=== PATIENT | male | born 1940 | race Hispanic/Latino ===

== ENCOUNTER 2017-09-15 17:46 | Inpatient (IN) | payer MEDICARE, BC ==
[2017-09-15] MEDS ORDERED: Sodium Chloride 0.9% 1,000 ML IV ONE (18:33)
[2017-09-15 19:11] LABS: VENOUS BLOOD GAS BASE EXCESS 0.9 mmol/L (0.0-2.0); VENOUS BLOOD GAS PO2 53 mm/Hg (30-55); VENOUS BLOOD PH 7.47 (7.32-7.43)
[2017-09-15 19:15] LABS: ALB/GLOB RATIO 1.5 (1.1-1.8); ALBUMIN 4.4 g/dL (3.0-4.8); ALT/SGPT 36 U/L (7-56); AST/SGOT 34 U/L (17-59); BLOOD UREA NITROGEN 26 mg/dL (7-21); CALCIUM 9.1 mg/dL (8.4-10.5); GFR AFRICAN-AMERICAN > 60; GFR NON-AFRICAN AMERICAN > 60
--- NOTE | 2017-09-15 19:15 | ED PDOC ---
Arrival/HPI - General Chief Complaint: Weakness/Neurological Deficit Time Seen by Provider: 09/15/17 18:01 Historian: Patient - History of Present Illness Narrative History of Present Illness (Text): 09/15/17 19:07 77 yo M with PMH of ascending aortic aneurysm, essential thrombocytosis on pegasys (peginteferon princess-2a), mitral insufficiency, hypertension, hyperlipidemia, melanoma s/p excision 2009, prostate CA s/p brachytherapy and radiation therapy, and nonocclusive CAD, who presents complaining of intermittent shortness of breath since 11:00 this morning. He started feeling short of breath this morning, worsened by walking, which he sometimes has, but was worse than usual for him. He wasn't feeling well, so he checked his temperature which was 101.5. He denies any chest pain, palpitations, cough, dizziness, abdominal pain, nausea, vomiting, diarrhea, chills, confusion, loss of consciousness, focal numbness or weakness, parasthesias. He also reports that he has constipation for several months. He also has had rectal bleeding since february of last year. He went to see his GI doctor (Dr. Saez) who did a colonoscopy 2 weeks ago, which was reportedly normal, and told him the bleeding was a consequence of the radiation he had for his prostate cancer. He was started on rectal mesalamine suppositories, which he has been taking since then, though skipped a few days. He has been bleeding more since starting the mesalamine, including several instances in which the blood filled the bowl. Valerio reports that he has recently been in contact with his grandson, who had an unknown viral illness last week. Time/Duration: 4-6 hours, > month, < month Symptom Course: Worsening Activities at Onset: Light Context: Walking Past Medical History - Provider Review Nursing Documentation Reviewed: Yes - Travel History Have you recently traveled outside [place] w/in the past 3 mons?: No - Patient History Narrative Patient History: ascending aortic aneurysm, essential thrombocytosis on pegasys (peginteferon princess-2a), mitral insufficiency, hypertension, hyperlipidemia, melanoma s/p excision 2009, prostate CA s/p brachytherapy and radiation therapy, and nonocclusive CAD - Infectious Disease Hx of Infectious Diseases: None - Tetanus Immunization Tetanus Immunization: Unknown - Cardiac Hx Hypertension: Yes Other/Comment: Leaky Mitro valve. Dialated aorta - HEENT Hx HEENT Disorder: No Other/Comment: Right eye problem - Psychiatric Hx Substance Use: No Family/Social History Family/Social History: CAD/[place], Neoplasm/Cancer Smoking Status: Never Smoked Hx Alcohol Use: No Hx Substance Use: No Hx Substance Use Treatment: No Allergies/Home Meds Allergies/Adverse Reactions: Allergies formaldehyde Allergy (Verified 09/15/17 18:02) RASH nickel Allergy (Verified 09/15/17 18:02) RASH Home Medications: Home Meds Medication Instructions Recorded Confirmed Aspirin [Kym Aspirin Children's] 325 mg PO DAILY 04/10/13 04/10/13 Hydrochlorothiazide/Valsarta 1 tab PO DAILY 04/10/13 04/10/13 [Diovan Hct 25 mg-160 mg] Simvastatin 20 mg PO DAILY 04/10/13 04/10/13 Review of Systems - Physician Review All systems were reviewed & negative as marked: Yes Physical Exam Vital Signs Reviewed: Yes Vital Signs Temp Pulse Resp BP Pulse Ox 09/15/17 20:48 102/65 09/15/17 19:15 108 H 18 109/67 95 09/15/17 18:10 101.5 F H 99 H 16 128/80 99 Temperature: Febrile Blood Pressure: Normal Pulse: Tachycardic Respiratory Rate: Normal Appearance: Positive for: Well-Appearing, Non-Toxic, Comfortable Pain Distress: None Mental Status: Positive for: Alert and Oriented X 3 - Systems Exam Head: Present: Atraumatic, Normocephalic Pupils: Present: PERRL Extroacular Muscles: Present: EOMI Conjunctiva: Present: Normal Mouth: Present: Moist Mucous Membranes Pharnyx: Present: Normal. No: ERYTHEMA, EXUDATE Neck: Present: Normal Range of Motion. No: Meningeal Signs Respiratory/Chest: Present: Clear to Auscultation, Good Air Exchange. No: Respiratory Distress, Accessory Muscle Use Cardiovascular: Present: Regular Rate and Rhythm, Murmurs (4/6 holosytolic murmur heard 6th intercostal space left midclavicular line), Normal S1, S2, Tachycardic Abdomen: No: Tenderness, Distention, Normal Bowel Sounds (hypoactive), Peritoneal Signs, Rebound, Guarding Upper Extremity: Present: Normal Inspection, NORMAL PULSES. No: Cyanosis, Edema Lower Extremity: Present: Normal Inspection, NORMAL PULSES. No: Edema, CALF TENDERNESS Neurological: Present: GCS=15, CN II-XII Intact, Speech Normal Skin: Present: Warm, Dry, Normal Color. No: Rashes (localized erythema over bilateral abdominal pegasys injection sites) Lymphatic: No: Cervical Adenopathy Psychiatric: Present: Alert, Oriented x 3, Normal Insight, Normal Concentration Medical Decision Making ED Course and Treatment: 09/15/17 19:25 Impression: 77 yo M with complicated PMH, multiple comorbidities, complaining of shortness of breath, fever, and rectal bleeding Differential Diagnosis included but are not limited to: infection, ACS, anemia , GIB Plan: -- Labs: CBC, CMP, Urinalysis, VBG with lactate, Urinalysis, urine culture, blood culture, troponin, BNP, procalcitonin, rapid flu, Mg, Phos, PT, PTT -- EKG -- Chest X-ray -- 1L NS IVF bolus -- Acetaminophen for fever -- Reassess and disposition Progress Notes: 09/15/17 21:25 -- Labs significant for leukocytosis, but no lactic acidosis. UA and flu negative. Mild anemia and thrombocytosis, similar to baseline. Chemistry shows indeterminate, borderline troponin, elevated BNP. -- CXR shows mild congestion, and likely LLL consolidation concerning for PNA -- EKG shows sinus rhythm with 1st degree AV block; no ST elevations -- Patient likely has CAP causing fever, tachycardia, and CHF with resultant elevated troponin vs NSTEMI -- Ordered Lasix, -- Discussed with Dr. Hernandez who accepts patient to his service, admitted as inpatient to telemetry for pneumonia and CHF; requests Dr. Kramer for cardiology -- Call placed to Dr. Kramer 09/15/17 22:22 -- Dr. Kramer called, discussed case, recommended therapeutic anticoagulation with Lovenox 1mg/kg and ICU consult considering low BP and CHF -- Discussed with with machine tool designer Dr. Verde and medical records analyst for ICU consult for CHF and relative hypotension - Lab Interpretations Lab Results: 09/15/17 18:40 09/15/17 18:40 Lab Results 09/15/17 19:21: Influenza Typ A,B (EIA) Negative for flu a/b 09/15/17 19:21: Urine Color Yellow, Urine Appearance Clear, Urine pH 6.0, Ur Specific [place] 1.020, Urine Protein Negative, Urine Glucose (UA) Negative, Urine Ketones Negative, Urine Blood Negative, Urine Nitrate Negative, Urine Bilirubin Negative, Urine Urobilinogen 0.2, Ur Leukocyte Esterase Negative 09/15/17 18:40: Sodium 139, Chloride 102, Potassium 4.0, Carbon Dioxide 22, Anion Gap 19, BUN 26 H, Creatinine 0.8, Est GFR ( Amer) > 60, Est GFR ( Non-Af Amer) > 60, Random Glucose 97, Calcium 9.1, Phosphorus 2.5, Magnesium 1.9 , Total Bilirubin 0.4, AST 34, ALT 36, Alkaline Phosphatase 66, Troponin I 0.11 , NT-Pro-B Natriuret Pep 3480 H, Total Protein 7.3, Albumin 4.4, Globulin 2.9, Albumin/Globulin Ratio 1.5 09/15/17 18:40: pO2 53, VBG pH 7.47 H, VBG pCO2 33.0 L, VBG HCO3 24.0, VBG Total CO2 25.0, VBG O2 Sat (Calc) 93.2 H, VBG Base Excess 0.9, VBG Potassium 3.8 , Sodium 134.0, Chloride 103.0, Glucose 95, Lactate 1.3, FiO2 21.0, Venous Blood Potassium 3.8 09/15/17 18:40: PT 12.6 H, INR 1.10 H, APTT 36.7 H 09/15/17 18:40: WBC 11.8 H, RBC 4.33, Hgb 12.4 L, Hct 36.3 L, MCV 83.8, MCH 28.6 , MCHC 34.2, RDW 15.0 H, Plt Count 480 H, MPV 10.2, Gran % 86.7 H, Lymph % (Auto ) 7.7 L, [place] % (Auto) 4.8, Eos % (Auto) 0.7 L, Baso % (Auto) 0.1, Gran # 10.22 H, Lymph # (Auto) 0.9 L, [place] # (Auto) 0.6, Eos # (Auto) 0.1, Baso # (Auto) 0.01 09/15/17 18:02: POC Glucose (mg/dL) 100 - RAD Interpretation Radiology Orders: 09/15/17 18:34 CHEST TWO VIEWS (PA/LAT) [RAD] Stat - Medication Orders Current Medication Orders: Acetaminophen (Tylenol 325mg Tab) 975 mg PO ONCE PRN PRN Reason: Fever >100.4 F Last Admin: 09/15/17 18:55 Dose: 975 mg MAR Pain/Vitals Document 09/15/17 18:55 EWO (Rec: 09/15/17 18:55 EWO [id number]) Pain Reassessment Is This A Pain ReAssessment? No Ceftriaxone Sodium (Rocephin 1 Gram Ivpb) 1 gm in 100 mls @ 100 mls/hr IVPB STAT STA PRN Reason: Protocol Stop: 09/15/17 21:31 Last Admin: 09/15/17 20:48 Dose: 100 mls/hr eMAR Start Stop Document 09/15/17 20:48 CNR (Rec: 09/15/17 20:49 CNR [id number]) Intravenous Solution Start Date 09/15/17 Start Time 20:48 End Date 09/15/17 End time 21:48 Total Infusion Time 60 Azithromycin (Zithromax 500mg In Ns) 500 mg in 250 mls @ 167 mls/hr IVPB STAT STA PRN Reason: Protocol Stop: 09/15/17 22:07 Discontinued Medications Aspirin (Aspirin Chewable) 324 mg PO STAT STA Stop: 09/15/17 20:33 Last Admin: 09/15/17 20:48 Dose: 324 mg Furosemide (Lasix) 40 mg IVP STAT STA Stop: 09/15/17 20:33 Last Admin: 09/15/17 20:48 Dose: 40 mg MAR Blood Pressure Document 09/15/17 20:48 CNR (Rec: 09/15/17 20:48 CNR [id number]) Blood Pressure Blood Pressure (100/60-150/90) 102/65 IVP Administration Document 09/15/17 20:48 CNR (Rec: 09/15/17 20:48 CNR [id number]) Charges for Administration # of IVP Administrations 1 Sodium Chloride (Sodium Chloride 0.9%) 1,000 mls @ 1,000 mls/hr IV .Q1H ONE Stop: 09/15/17 19:32 Last Admin: 09/15/17 18:54 Dose: 1,000 mls/hr eMAR Start Stop Document 09/15/17 18:54 NORMAN (Rec: 09/15/17 18:54 SAMMYO [id number]) Intravenous Solution Start Date 09/15/17 Start Time 18:54 End Date 09/15/17 End time 19:54 Total Infusion Time 60 Disposition/Present on Arrival - Present on Arrival Any Indicators Present on Arrival: No History of DVT/PE: No History of Uncontrolled Diabetes: No Urinary Catheter: No History of Decub. Ulcer: No History Surgical Site Infection Following: None - Disposition Have Diagnosis and Disposition been Completed?: Yes Diagnosis: CHF (congestive heart failure), Pneumonia, Elevated troponin Disposition: HOSPITALIZED Disposition Time: 22:29 Patient Plan: Admission, Telemetry Condition: GUARDED
[2017-09-15 19:19] LABS: BASO # 0.01 K/mm3 (0.0-2.0); BASO % 0.1 % (0.0-3.0); EOS # 0.1 (0.0-0.7); EOS % 0.7 % (1.5-5.0); GRAN # 10.22 (1.4-6.5); GRAN % 86.7 % (50.0-68.0); HEMOGLOBIN 12.4 g/dL (14.0-18.0); LYMPH # 0.9 (1.2-3.4); LYMPH % 7.7 % (22.0-35.0); MEAN CELL VOLUME 83.8 fl (80.0-105.0); MEAN CORPUSCULAR HEMOGLOBIN 28.6 pg (25.0-35.0); MEAN CORPUSCULAR HGB CONC 34.2 g/dl (31.0-37.0); MEAN PLATELET VOLUME 10.2 fl (7.0-11.0); MONO # 0.6 (0.1-0.6); MONO % 4.8 % (1.0-6.0); RBC 4.33 10^6/uL (3.5-6.1); WHITE BLOOD COUNT 11.8 10^3/ul (4.5-11.0)
[2017-09-15 19:29] LABS: URINE BILIRUBIN NEGATIVE (NEGATIVE); URINE BLOOD NEGATIVE (NEGATIVE); URINE GLUCOSE (UA) NEGATIVE (NEGATIVE); URINE LEUKOCYTE ESTERASE NEGATIVE Leu/uL (NEGATIVE); URINE PROTEIN NEGATIVE mg/dL (<30 mg/dL); URINE UROBILINOGEN 0.2 E.U./dL (<1 E.U./dL)
[2017-09-15 19:29] LABS: B-TYPE NATRIURETIC PEPTIDE 3480 pg/mL (0-450); INR 1.1 (0.93-1.08); PARTIAL THROMBOPLASTIN TIME 36.7 Seconds (25.1-36.5); PROTHROMBIN TIME 12.6 SECONDS (9.4-12.5); TROPONIN I 0.11 ng/mL
[2017-09-15 19:30] LABS: URINE APPEARANCE CLEAR (CLEAR); URINE COLOR YELLOW (YELLOW)
[2017-09-15] MEDS ORDERED: cefTRIAXone 1 gm 1 GM/100 ML BAG IVPB STA (20:32)
[2017-09-15] MEDS ORDERED: Azithromycin 500MG/NS 250ml 500 MG/250 ML BAG IVPB STA (20:38)
--- NOTE | 2017-09-15 22:29 | CP.PCM.CON ---
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 He started feeling short of breath this morning, worsened by walking. Denies baseline SOB. He wasn' t feeling well, so he checked his temperature which was 101.5. At baseline, pt sleeps on 1 pillow. Do yard work occasionally. There are 3 flights of stairs at home, which he climbed with no SOB. He reports that he had rectal bleeding since february of last year. He went to see his GI doctor (Dr. Saez) who did a colonoscopy 2 weeks ago, which was reportedly normal, and told him the bleeding was a consequence of the radiation he had for his prostate cancer. He was started on rectal mesalamine suppositories, which he has been taking since then, though skipped a few days. He has been bleeding more since starting the mesalamine, including several instances in which the blood filled the bowl. In the ED, after 1L NS bolus, he received 40 IV lasix, and BP drops from 120s to 90. At baseline, pt BP was in 110s/70s at home. ROS - (+) blood in stool (+) L shoulder pain, chronic, (+) L arm pain, chronic. (+) consttpation Denies COOL, dizziness, chest pain, palpitations, cough, abdominal pain, nausea, vomiting, diarrhea, chills, confusion, focal numbness or weakness, parasthesias. 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 Occasionally wine, Denies drug All Formaldehye, annie Med See MAR PMD Dr Hernandez One/Heme Dr Julio, [facility] Dr [address], [place], [place] GI Dr Saez Eye Dr [address], [place], [place] Past Patient History - Infectious Disease Hx of Infectious Diseases: None - Tetanus Immunizations Tetanus Immunization: Unknown - Past Social History Smoking Status: Never Smoked - CARDIAC Hx Hypertension: Yes Other/Comment: Leaky Mitro valve. Dialated aorta - HEENT Hx HEENT Problems: No Other/Comment: Right eye problem - PSYCHIATRIC Hx Substance Use: No Meds Allergies/Adverse Reactions: Allergies Allergy/AdvReac Type Severity Reaction Status Date / Time formaldehyde Allergy RASH Verified 09/15/17 18:02 nickel Allergy RASH Verified 09/15/17 18:02 - Medications Medications: Current Medications Acetaminophen (Tylenol 325mg Tab) 975 mg PO ONCE PRN PRN Reason: Fever >100.4 F Last Admin: 09/15/17 18:55 Dose: 975 mg Enoxaparin Sodium (Lovenox) 80 mg SC Q12H ZITA PRN Reason: Protocol Physical Exam - Constitutional Appears: No Acute Distress - Head Exam Head Exam: ATRAUMATIC, NORMAL INSPECTION, NORMOCEPHALIC - Eye Exam Eye Exam: EOMI, Normal appearance, PERRL. absent: Scleral icterus Pupil Exam: NORMAL ACCOMODATION - ENT Exam ENT Exam: Mucous Membranes Moist - Neck Exam Additional comments: supple. No JVD - Respiratory Exam Respiratory Exam: Decreased Breath Sounds (R upper and R lower lobe), Clear to Auscultation Bilateral, NORMAL BREATHING PATTERN. absent: Rhonchi - Cardiovascular Exam Cardiovascular Exam: REGULAR RHYTHM, +S1, +S2, Systolic Murmur - GI/Abdominal Exam GI & Abdominal Exam: Normal Bowel Sounds, Soft. absent: Distended, Guarding, Rigid, Tenderness - Extremities Exam Extremities exam: Positive for: normal capillary refill, pedal pulses present. Negative for: calf tenderness, pedal edema - Back Exam Back exam: absent: CVA tenderness (L), CVA tenderness (R) - Neurological Exam Neurological exam: Alert, Oriented x3 - Psychiatric Exam Psychiatric exam: Normal Affect, Normal Mood - Skin Skin Exam: Dry, Warm Results - Vital Signs Recent Vital Signs: Last Vital Signs Temp 99.2 F 09/15/17 21:59 Pulse 92 H 09/15/17 21:59 Resp 18 09/15/17 21:59 BP 90/54 L 09/15/17 21:59 Pulse Ox 95 09/15/17 21:59 - Labs Result Diagrams: 09/15/17 18:40 09/15/17 18:40 Assessment & Plan - Assessment and Plan (Free Text) Plan: Mr Brantley, 77 yo M, with PMH of prostate CA s/p brachytherapy and radiation therapy 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 CXR showed increased infiltrates in R middle lobe. PE is significant for E-a egophony and decrease breath sound on R. Trops is 0.11 , EKG shows sinus 100 with 1st degree AV block, poor R wave progressions, and TWI in lead III and aVR. ICU was consulted for hypotension to r/o shock. When pt came to the floor, the new BP is 101/65 Hypotension likely induced by lasix 40 IV Elevated trops, demand/supply ischemia vs NSTEMI (ROBERT 5) R/O cardiogenic shock Unlikely septic shock - No signs of end organ damage, lactate 1.3 - goal MAP > 65 - repeat VS q 1 hr x 2 - Hold fluid for now - therapeutic lovenox per cardio s/r/d/w Dr. Verde 5:00am BP at 3am and 5am above 100. Pt should remain in Tele <Ezekiel Verde MD - Last Filed: 09/16/17 07:58> Meds - Medications Medications: Current Medications Acetaminophen (Tylenol 325mg Tab) 975 mg PO ONCE PRN PRN Reason: Fever >100.4 F Last Admin: 09/15/17 18:55 Dose: 975 mg Aspirin (Aspirin Chewable) 81 mg PO DAILY ZITA Atorvastatin Calcium (Lipitor) 80 mg PO DIN ZITA Enoxaparin Sodium (Lovenox) 80 mg SC Q12H ZITA PRN Reason: Protocol Last Admin: 09/15/17 23:48 Dose: 80 mg Results - Vital Signs Recent Vital Signs: Last Vital Signs Temp 97.8 F 09/16/17 06:00 Pulse 85 09/16/17 06:00 Resp 20 09/16/17 06:00 BP 101/63 09/16/17 06:00 Pulse Ox 96 09/16/17 06:00 - Labs Result Diagrams: 09/15/17 18:40 09/15/17 18:40 Attending/Attestation - Attestation I have personally seen and examined this patient.: Yes I have fully participated in the care of the patient.: Yes I have reviewed all pertinent clinical information: Yes Notes (Text): -I agree with the above ICU evaluation ote completed by the resident physician with the following additions and/or changes: -The patient is a 76 yo man with a history of prostate CA (s/p brachytherapy and radiation), melanoma (s/p excision 2009), essential thrombocytosis (on Peginteferon princess-2a), ascending aortic aneurysm, CAD, HTN and HLD being admitted for NSTEMI. The patients isolated hypotensive episode prior to being admitted to telemetry fernandes was likely due to dose of IV Lasix he received. Because he has since become normotensive he doesnt require ICU level of care at this time. Recommend continued treatment and management of NSTEMI with serial trops/EKGs, Lipitor, ASA, Lovenox and cards consult (already on-board) . If the patients condition deteriorates overnight (or he becomes hypotensive again), I will have the tele nurse notify me. Otherwise, please re-consult if necessary. Thank you. Critical Care Time Spent: 45-60 minutes
[2017-09-15 22:33] VITALS: BMI 25.1
[2017-09-15] MEDS: Enoxaparin 80 mg Syringe SC SCH (23:48)
[2017-09-16 08:14] LABS: BASO # 0.01 K/mm3 (0.0-2.0); BASO % 0.1 % (0.0-3.0); EOS # 0.1 (0.0-0.7); EOS % 0.9 % (1.5-5.0); GRAN # 7.62 (1.4-6.5); GRAN % 82.4 % (50.0-68.0); HEMOGLOBIN 11.2 g/dL (14.0-18.0); MEAN CELL VOLUME 83.2 fl (80.0-105.0); MEAN CORPUSCULAR HEMOGLOBIN 28.9 pg (25.0-35.0); MEAN CORPUSCULAR HGB CONC 34.8 g/dl (31.0-37.0); MONO # 0.5 (0.1-0.6); MONO % 5.6 % (1.0-6.0); RBC 3.87 10^6/uL (3.5-6.1); WHITE BLOOD COUNT 9.3 10^3/ul (4.5-11.0)
[2017-09-16 08:33] LABS: ALB/GLOB RATIO 1.5 (1.1-1.8); ALBUMIN 3.7 g/dL (3.0-4.8); ALT/SGPT 31 U/L (7-56); AST/SGOT 36 U/L (17-59); BLOOD UREA NITROGEN 23 mg/dL (7-21); CALCIUM 8.2 mg/dL (8.4-10.5); GFR AFRICAN-AMERICAN > 60; GFR NON-AFRICAN AMERICAN > 60
[2017-09-16 09:09] LABS: TROPONIN I 0.18 ng/mL
[2017-09-16] MEDS: cefTRIAXone 1 gm 1 GM/100 ML BAG IVPB SCH (09:12)
--- NOTE | 2017-09-16 09:15 | RAD ---
HISTORY: r/o PNA COMPARISON: No prior. TECHNIQUE: Chest PA and lateral FINDINGS: LUNGS: There is a linear infiltrate in the left lower lobe consistent with pneumonia. There is also mild vascular congestion PLEURA: No significant pleural effusion identified. No pneumothorax apparent. CARDIOVASCULAR: Mild aortic tortuosity OSSEOUS STRUCTURES: No significant abnormalities. VISUALIZED UPPER ABDOMEN: Normal. OTHER FINDINGS: None. IMPRESSION: Left lower lobe infiltrate
[2017-09-16] MEDS: Enoxaparin 80 mg Syringe SC SCH (09:17)
--- NOTE | 2017-09-16 10:59 | CARD ---
APPROVED REPORT EKG Measurement Heart [id number] CT 236P-2 [id number] <Conclusion> Sinus rhythm with 1st degree AV block Inferior infarct, age undetermined Abnormal ECG
--- NOTE | 2017-09-16 14:22 | CON ---
DATE: CARDIOLOGY CONSULTATION HISTORY OF PRESENT ILLNESS: The patient is a 77-year-old male with a history of hypercholesterolemia as well as hypertension as well as documented previous coronary artery disease in the past who presents with acute shortness of breath. He was found to have pneumonia as well as elevated troponins. PAST MEDICAL HISTORY: Notable for cardiac catheterization years ago, which showed multiple 40-50% lesions in his coronary tree. No angina noted. No diabetes mellitus. SOCIAL HISTORY: The patient denies smoking. REVIEW OF SYSTEMS: A 14-point review of systems were reviewed in detail. No symptoms other than the ones above. The patient did have several months ago bleeding from the colon secondary to radiation for his prostate CA in the past. PHYSICAL EXAMINATION: VITAL SIGNS: Blood pressure is 101/63, the heart rates in the 80s. NECK: Negative JVD. LUNGS: Decreased breath sounds bilaterally. HEART: Reveal S1, S2 with 2/6 systolic ejection murmur. EXTREMITIES: Without edema. DATA: EKG shows normal sinus rhythm with diffuse ST-T changes. LABORATORY DATA: Hemoglobin is 12.2, white count is down to 9.3. Troponin was 0.11. ProBNP is 3480. IMPRESSION: 1. Non-ST elevation myocardial infarction. 2. High probability for coronary artery disease. 3. Pneumonia. 4. Aortic valve sclerosis. 5. Mild mitral regurgitation. 6. Mild congestive heart failure. Given these findings, we will start the patient on aspirin and Plavix. Echo has been ordered for today. IV antibiotics has been ordered. Given these findings, I have discussed cardiac catheterization with the patient in detail. We will schedule for catheterization in the morning. Ismael Kramer MD
--- NOTE | 2017-09-16 16:20 | CARD ---
APPROVED REPORT EXAM: Two-dimensional and M-mode echocardiogram with Doppler and color Doppler. INDICATION Non STEMI 2D DIMENSIONS Left Atrium (2D)3.4 (1.6-4.0cm)IVSd1.5 (0.7-1.1cm) LVDd4.2 (3.9-5.9cm)LVOT Diameter1.8 (1.8-2.4cm) PWd1.4 (0.7-1.1cm)LVDs3.0 (2.5-4.0cm) FS (%) 28.4 %LVEF (%)55.1 (>50%) M-Mode DIMENSIONS Aortic Root3.20 (2.2-3.7cm)Aortic Cusp Exc.0.60 (1.5-2.0cm) Aortic Valve AoV Peak Hvjvsyel706.0cm/sAoV VTI76.8cmAO Peak GR.73mmHg LVOT Peak Hxaopqfg290.0cm/sLVOT VTI39.20cmAO Mean GR.40mmHg JONN (VMAX)1.48ju0ODX (VTI)1.30cm2 Mitral Valve MV E Rmlicejl897.0cm/sMV A Faecylku94.4cm/sE/A ratio1.2 TDI E/Lateral E'0.0E/Medial E'0.0 Tricuspid Valve TR Peak Zzcfemjo313zk/sRAP [id number] Peak Gr.33mmHg EIUO42igAt LEFT VENTRICLE The left ventricle is normal size. There is mild to moderate concentric left ventricular hypertrophy. The left ventricular function is normal. The left ventricular ejection fraction is within the normal range. There is normal LV segmental wall motion. Transmitral Doppler flow pattern is Grade II-pseudonormal filling dynamics. RIGHT VENTRICLE The right ventricle is normal size. There is normal right ventricular wall thickness. The right ventricular systolic function is normal. ATRIA The left atrium size is normal. The right atrium size is normal. AORTIC VALVE The aortic valve is severely calcified. There is moderate aortic regurgitation. There is severe valvular aortic stenosis. MITRAL VALVE The mitral valve is moderately thickened. Mitral regurgitation is severe. TRICUSPID VALVE There is moderate tricuspid regurgitation. There is mild pulmonary hypertension. PULMONIC VALVE There is mild pulmonic valvular regurgitation. GREAT VESSELS The aortic root is normal in size. PERICARDIAL EFFUSION There is a trace loculated anterior pericardial effusion. <Conclusion> The left ventricle is normal size. There is mild to moderate concentric left ventricular hypertrophy. The left ventricular function is normal. The left ventricular ejection fraction is within the normal range. There is normal LV segmental wall motion. Transmitral Doppler flow pattern is Grade II-pseudonormal filling dynamics. There is severe valvular aortic stenosis. There is moderate aortic regurgitation. Mitral regurgitation is severe. There is moderate tricuspid regurgitation. There is mild pulmonary hypertension.
--- NOTE | 2017-09-16 16:24 | CARD ---
APPROVED REPORT EKG Measurement Heart [id number] <Conclusion> Poor data quality, interpretation may be adversely affected Sinus rhythm with 1st degree AV block Inferior infarct, age undetermined Abnormal ECG
--- NOTE | 2017-09-16 20:58 | HP ---
DATE OF EXAM: HISTORY OF PRESENT ILLNESS: Bebeto is a 77-year-old white male with history of prostate cancer, status post brachytherapy, history of radiation, colitis with bleeding, history of dilated thoracic aorta, history of aortic stenosis, history of recent fall. The patient admitted to the hospital after having elevated fever and chills associated with shortness of breath, came to the emergency room, was found to have chest x-ray consistent with possible effusion versus pneumonia. The patient had a normal white count. H and H was essentially normal. His temperature today is 97.8. He was diuresed with Lasix whenever had a drop in his blood pressure. He was stabilized with some fluids. His blood pressure is 101/63. His BNP was over 3000. He is being seen in consultation with Dr. Ismael Kramer. He was admitted on IV antibiotics, low-sodium diet and scheduled for a workup of his CAD versus chronic disease. The patient had a history of cath many years ago with 40% blockages at that time. The patient does have elevated troponin. PHYSICAL EXAMINATION: GENERAL: A well-developed, well-nourished white male, in no apparent distress. HEENT: Essentially within normal limits. HEART: Regular sinus rhythm. Systolic ejection murmur at the left sternal border, approximately 3/6, radiating into the neck. CHEST: Clear to auscultation and percussion with decreased breath sounds bilaterally. ABDOMEN: Benign. EXTREMITIES: Without any cyanosis, clubbing, or edema. NEUROLOGIC: Sensation is grossly intact. IMPRESSION: A 77-year-old white male presenting with fever, chills, possible pleural effusion, aortic stenosis, elevated troponin, elevated BNP, acute versus chronic congestive heart failure, and dilated aorta. Sae Hernandez MD : 09/16/2017 9:39:36
[2017-09-16 22:37] LABS: TROPONIN I 0.21 ng/mL
[2017-09-16] MEDS ORDERED: Naproxen 550 mg Tab PO STA (23:06)
--- NOTE | 2017-09-17 09:59 | PN ---
DATE: SUBJECTIVE: A 77-year-old white male admitted to the hospital with shortness of breath, fever. Was found to have elevated troponins. The patient is for catheterization this morning. He does complain of some shortness of breath while lying flat. He is more comfortable lying up. He did develop some intermittent atrial fibrillation last night. He is on anticoagulation. He was seen in consultation by Dr. Kramer. He is for a cardiac catheterization this morning. He did have an echocardiogram yesterday. He does have systolic ejection murmur at the left sternal border. His echocardiogram revealed normal left ventricular size, moderate LVH, ejection fraction was normal. There was a grade 2 pseudonormal filling dynamics. Severe valvular aortic stenosis. Moderate aortic regurgitation and severe mitral regurgitation and moderate tricuspid regurgitation. The aortic valve was severely calcified. Moderate aortic regurgitation with severe valvular stenosis. PHYSICAL EXAMINATION: Physical examination is unchanged. CHEST: Clear to auscultation. HEART: Mildly irregular with some ectopy. EXTREMITIES: Without cyanosis, clubbing or edema. ASSESSMENT AND PLAN: Plan is for cardiac catheterization and evaluation of his coronaries and his aortic valve. Sae Hernandez MD
[2017-09-17] MEDS: cefTRIAXone 1 gm 1 GM/100 ML BAG IVPB SCH ×2 (11:07→14:29)
[2017-09-17] MEDS ORDERED: Midazolam 2 MG/2 ML VIAL ONE ×2 (12:11→12:14)
[2017-09-17] MEDS ORDERED: Lidocaine 2% Inj (20ml) ONE (12:13)
[2017-09-17] MEDS ORDERED: Iohexol 350mgl/ml 50 ML ONE (12:14)
[2017-09-17] MEDS ORDERED: Iodixanol 320 MG/ML 200 ML BOTTLE IV ONE (12:14)
[2017-09-17] MEDS ORDERED: Sodium Chloride 0.9% 1,000 ML IV SCH (13:45)
--- NOTE | 2017-09-17 15:49 | CARDCATH ---
PROCEDURE DATE: 09/17/2017 HISTORY: The patient is a 77-year-old male, who presents with dyspnea. Echocardiogram reveals critical aortic stenosis as well as significant mitral regurgitation. He also had borderline elevated troponins. A cardiac catheterization was recommended. PROCEDURE: Right and left heart catheterization with coronary arteriography, left ventriculogram, supra-aortic valvular injection. The right femoral artery was cannulated with a 6-Japanese sheath. The right femoral vein was cannulated with a 7-Japanese sheath. There were no complications. I performed moderate sedation, which included the presence of an independent trained observer that assisted in monitoring the patient's level of consciousness and physiologic status. After administration of Versed and fentanyl, my intra service time was 30 minutes. The findings on catheterization include a hemodynamic data, which revealed a right atrial mean pressure of 10 mmHg, RV pressure was 43/10 mmHg, pulmonary artery pressures were 35/17 mmHg, mean pulmonary capillary wedge pressure was 18 mmHg. Simultaneous LV and supra-aortic valve pressure measurements revealed a ttnk-lw-lsws gradient of 42 mmHg. With a cardiac output that was measured at cardiac output of 4.5 L/minute, the valve area was 0.81 cm2. His coronary anatomy revealed a right dominant circulation. The RCA revealed diffuse intimal irregularities without significant stenoses. The left main artery was unremarkable. The LAD and diagonal vessels revealed intimal irregularities without critical lesions. The circumflex artery and obtuse marginal branches revealed intimal irregularities without significant stenoses. Supra-aortic valvular injection revealed 1+ aortic insufficiency and a dilated descending aorta. LV gram was performed in the MARTINEZ projection. In the MARTINEZ projection, wall motion was within normal limits with an EF of 55-60%. There was 3+ mitral regurgitation noted. Angio-Seal was used to close the right femoral artery site. Manual compression was used to close the right femoral vein site. The patient tolerated the procedure well. In summary, the procedure revealed critical aortic valve stenosis with an aortic valve area of 0.8 cm2. 1+ aortic insufficiency. 3+ mitral regurgitation with normal LV function. Diffuse intimal irregularity in his coronary tree without critical lesions. Given these findings, the patient will need to have his mitral valve as well as aortic valve disease addressed. Cardiac surgery would be the best approach to have both valves replaced. Ismael Kramer MD [facility] # [id number]
[2017-09-18] MEDS ORDERED: Iohexol 350 MG/100 ML VIAL ONE (08:44)
--- NOTE | 2017-09-18 09:29 | PQF CHF ---
This form is a permanent part of the medical record Clarification of your documentation is requested to better reflect the severity of illness and intensity of treatment of your patient. Indicators present Card consult 09/16, shows documentation of " mild CHF". Please clarify Type & acuity POA. [x] Diagnosis of CHF and/or history of CHF [x] BNP > 200 [] Imaging Finding of Pulmonary Edema /Pleural Effusions [] Fluid/Volume Overload [] Pitting edema [] Ejection Fraction < 40% (Indicative of Systolic Heart Failure) [x] Ejection Fraction > 40% (Indicative of Diastolic Heart Failure) [x] Dyspnea / Orthopenea / Paroxysmal Nocturnal Dyspnea [] Other: Location in the medical record that reflects the above clinical findings: [x] Card consult Treatment Provided: [x] Card Cath PHYSICIAN'S RESPONSE Based on your medical judgment of the clinical indicators outlined above, are you treating this patient for a known or suspected: [] Acute CHF [] Systolic [] Diastolic [] Combined [] Chronic CHF [] Systolic [] Diastolic [] Combined [] Acute on Chronic CHF []Systolic [] Diastolic [] Combined [] CHF due hypertension [] Acute systolic []Chronic systolic [] Acute/ chronic systolic [] Other, please indicate: [] [] If Unable to Determine, please check the box, sign and date. Present On Admission (POA) Indicator: [] Present at the time of admission [] Not present at the time of admission [] Clinically Undetermined In responding to this query, please exercise your independent professional judgment. The fact that a question is asked does not imply that any particular answer is desired or expected. Thank you for your clarification on this documentation. If you have any questions please call:[ ] [phone] * Thank you, [ ] Jasmin Saldana RN CDS crane assembler [facility]
[2017-09-18 09:38] VITALS: O2SAT 97
[2017-09-18] MEDS: cefTRIAXone 1 gm 1 GM/100 ML BAG IVPB SCH (10:11)
--- NOTE | 2017-09-18 10:15 | PN ---
DATE: SUBJECTIVE: A 77-year-old white male, status post cardiac catheterization stent, critical aortic stenosis and severe mitral regurgitation. The patient is being evaluated for possible open heart surgery followed by double valve replacement. The patient also had positive troponins, and slightly elevated fever. The patient is going to have a CT to rule out PE. He will most likely be discharged, if the CT is negative to plan outpatient surgery. Physical examination is unchanged. The patient is stable. He is comfortable. Vital signs are stable. Sae Hernandez MD
--- NOTE | 2017-09-18 10:16 | PN ---
DATE: 09/18/2017 CARDIOLOGY FOLLOWUP SUBJECTIVE: The patient is stable post cardiac catheterization. PHYSICAL EXAMINATION VITAL SIGNS: Blood pressure is 128/81, the heart rate is in the 90s. NECK: Negative JVD. LUNGS: Without rales. HEART: Reveals S1, S2 with a II/ systolic ejection murmur. EXTREMITIES: Without edema. LABORATORY DATA: Hemoglobin is 11.2. Chemistries: BUN and creatinine unremarkable. The troponin continues to be mildly elevated. IMPRESSION: 1. Borderline elevated troponins. 2. Nonobstructive coronary artery disease. 3. Aortic stenosis. 4. Mitral regurgitation. 5. Congestive heart failure. PLAN: Given these findings, we will order a CT scan of the chest to rule out pulmonary embolism. In addition, I have discussed with the patient about his need for double valve replacement. He will decide where he would like to have his procedure done. Ismael Kramer MD
--- NOTE | 2017-09-18 11:17 | CT ---
PROCEDURE: CT Chest with contrast (Pulmonary Angiogram) HISTORY: pulm embolism COMPARISON: None available. TECHNIQUE: Axial computed tomography images were obtained of the chest in the pulmonary arterial phase of enhancement. Coronal and sagittal reformatted images were created and reviewed. Intravenous contrast dose: Radiation dose: Total exam DLP = mGy-cm. This CT exam was performed using one or more of the following dose reduction techniques: Automated exposure control, adjustment of the mA and/or kV according to patient size, and/or use of iterative reconstruction technique. FINDINGS: PULMONARY ARTERIES: Unremarkable. No pulmonary embolism. AORTA: 4.4 centimeter ascending aortic aneurysm. LUNGS: Unremarkable. No nodule, mass or pulmonary consolidation. PLEURAL SPACES: Small bilateral pleural effusions with minimal atelectatic change at the lung bases. HEART: Unremarkable. No cardiomegaly. No significant pericardial effusion. LYMPH NODES: No lymphadenopathy. BONES, CHEST WALL: Unremarkable. No fracture or destructive lesion OTHER FINDINGS: Unremarkable. IMPRESSION: No evidence of pulmonary embolism. Small bilateral pleural effusions. 4.4 centimeter ascending aortic aneurysm.
[2017-09-18 12:29] VITALS: BP 122/70; PULSE 93; RESP 20; TEMP 98.6
--- NOTE | 2017-09-20 06:18 | DS ---
HISTORY OF PRESENT ILLNESS: Patient is a 77-year-old white male with history of prostate cancer, hypertension, coronary artery disease. Patient was admitted to the hospital with shortness of breath, chest pain, elevated fever, found to have elevated troponins. Echocardiogram showed critical aortic stenosis. 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 Ismael Kramer. Patient had been catheterized many years ago by Dr. Kramer with moderate coronary artery disease. Patient was found to have critical aortic stenosis and critical mitral regurgitation with coronary artery disease. Patient, because of the shortness of breath and elevated troponins, had a CT angiogram, which was negative for pulmonary emboli. Patient was able to be discharged home to consider possible double valve replacement as an outpatient. Patient was discharged home in improved condition, to be followed as an outpatient. Sae Hernandez MD
== END 2017-09-18 13:29 | disposition home or self-care (01) | DRG 280 ==
LOC: ED 17:46 → ERH 21:05 → 2RSO 22:35 → 2RNO 09-17 14:13
PROVIDERS: ADMIT Internal Medicine; ATTEND Internal Medicine
PROC: 4A023N8 Measurement of Cardiac Sampling and Pressure, Bilateral, Percutaneous Approach (ICD-10-PCS; principal; 2017-09-17)
PROC: B2151ZZ Fluoroscopy of Left Heart using Low Osmolar Contrast (ICD-10-PCS; 2017-09-17)
PROC: B2111ZZ Fluoroscopy of Multiple Coronary Arteries using Low Osmolar Contrast (ICD-10-PCS; 2017-09-17)
PROC: 3E073KZ Introduction of Other Diagnostic Substance into Coronary Artery, Percutaneous Approach (ICD-10-PCS; 2017-09-17)
DX: I21.4 Non-ST elevation (NSTEMI) myocardial infarction (principal); J18.9 Pneumonia, unspecified organism; I08.3 Combined rheumatic disorders of mitral, aortic and tricuspid valves; I25.10 Atherosclerotic heart disease of native coronary artery without angina pectoris; I71.2 Thoracic aortic aneurysm, without rupture; I11.0 Hypertensive heart disease with heart failure; I50.9 Heart failure, unspecified; E78.00 Pure hypercholesterolemia, unspecified; I48.91 Unspecified atrial fibrillation; D47.3 Essential (hemorrhagic) thrombocythemia; K59.00 Constipation, unspecified; Z85.46 Personal history of malignant neoplasm of prostate; Z85.820 Personal history of malignant melanoma of skin; Z79.01 Long term (current) use of anticoagulants; Z92.3 Personal history of irradiation

== ENCOUNTER 2017-09-26 18:27 | Inpatient (IN) | payer MEDICARE, BC ==
[2017-09-26 19:15] LABS: BASO # 0.01 K/mm3 (0.0-2.0); BASO % 0.1 % (0.0-3.0); EOS # 0.2 (0.0-0.7); EOS % 1.7 % (1.5-5.0); GRAN # 6.9 (1.4-6.5); GRAN % 75.1 % (50.0-68.0); HEMOGLOBIN 11.8 g/dL (14.0-18.0); LYMPH # 1.4 (1.2-3.4); LYMPH % 15.4 % (22.0-35.0); MEAN CELL VOLUME 81.8 fl (80.0-105.0); MEAN CORPUSCULAR HEMOGLOBIN 28.2 pg (25.0-35.0); MEAN CORPUSCULAR HGB CONC 34.5 g/dl (31.0-37.0); MEAN PLATELET VOLUME 10.5 fl (7.0-11.0); MONO # 0.7 (0.1-0.6); MONO % 7.7 % (1.0-6.0); RBC 4.18 10^6/uL (3.5-6.1); RED CELL DISTRIBUTION WIDTH 15.1 % (11.5-14.5); WHITE BLOOD COUNT 9.2 10^3/ul (4.5-11.0)
--- NOTE | 2017-09-26 19:25 | ED PDOC ---
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 He notes that he was recently discharge from this hospital. He denies fever, chills , chest pain, SOB, LE edema, calf pain, nausea, abdominal pain, any other complaint. Past Medical History - Provider Review Nursing Documentation Reviewed: Yes - Infectious Disease Hx of Infectious Diseases: None - Tetanus Immunization Tetanus Immunization: Unknown - Cardiac Hx Hypertension: Yes Other/Comment: Leaky Mitro valve. Dialated aorta - HEENT Hx HEENT Disorder: No Other/Comment: Right eye problem - Hematological/Oncological Hx Blood Disorders: Yes (essential thrombocytosis) - Musculoskeletal/Rheumatological Hx Falls: No - Genitourinary/Gynecological Hx Prostate Problems: Yes (Prostate CA) - Psychiatric Hx Substance Use: No Family/Social History - Physician Review Nursing Documentation Reviewed: Yes Family/Social History: Unknown Family HX Smoking Status: Never Smoked Hx Alcohol Use: No Hx Substance Use: No Hx Substance Use Treatment: No Allergies/Home Meds Allergies/Adverse Reactions: Allergies formaldehyde Allergy (Verified 09/26/17 18:42) RASH nickel Allergy (Verified 09/26/17 18:42) RASH Home Medications: Home Meds Medication Instructions Recorded Confirmed Aspirin [Kym Aspirin Children's] 325 mg PO DAILY 04/10/13 09/26/17 Simvastatin 20 mg PO DAILY 04/10/13 09/26/17 Valsartan/Hydrochlorothiazide 1 tab PO DAILY 09/26/17 09/26/17 [Valsartan and Hydrochlorothiazide 12.5 mg-160] Review of Systems - Physician Review All systems were reviewed & negative as marked: Yes - Review of Systems Constitutional: Fatigue Eyes: Normal ENT: Normal Respiratory: Normal Cardiovascular: Normal Gastrointestinal: Normal Genitourinary Male: Normal Musculoskeletal: Normal Skin: Normal Neurological: Dizziness. absent: Headache, Focal Weakness, Speech Changes Endocrine: Normal Hemo/Lymphatic: Normal Psychiatric: Normal Physical Exam Vital Signs Reviewed: Yes Vital Signs Temp Pulse Resp BP Pulse Ox 09/26/17 21:09 81 14 100/66 97 09/26/17 20:53 77 20 97/62 L 96 09/26/17 18:38 97.3 F L 76 18 90/56 L 96 Temperature: Afebrile Blood Pressure: Hypotensive Pulse: Regular Respiratory Rate: Normal Appearance: Positive for: Well-Appearing, Non-Toxic, Comfortable Pain Distress: None Mental Status: Positive for: Alert and Oriented X 3 - Systems Exam Head: Present: Atraumatic, Normocephalic Pupils: Present: PERRL Extroacular Muscles: Present: EOMI Conjunctiva: Present: Normal Mouth: Present: Moist Mucous Membranes Neck: Present: Normal Range of Motion Respiratory/Chest: Present: Clear to Auscultation, Good Air Exchange. No: Respiratory Distress, Accessory Muscle Use, Wheezes, Decreased Breath Sounds, Rales, Retracting, Rhonchi, Tachypneic Cardiovascular: Present: Regular Rate and Rhythm, Normal S1, S2. No: Murmurs Abdomen: No: Tenderness, Distention, Peritoneal Signs Back: Present: Normal Inspection Upper Extremity: Present: Normal Inspection. No: Cyanosis, Edema Lower Extremity: Present: Normal Inspection. No: Edema Neurological: Present: GCS=15, CN II-XII Intact, Speech Normal Skin: Present: Warm, Dry, Normal Color. No: Rashes Psychiatric: Present: Alert, Oriented x 3, Normal Insight, Normal Concentration Medical Decision Making ED Course and Treatment: 09/26/17 23:52 Pt presented for stated history. EKG Sinus rhythm with 1st degree AV block. Nonsepcific ST elevation was noted which was similar to his previous EKG. 78bpm Cardiac and septic Lab ordered CXR ordered Lactic acid was wnl. No leukocytosis. Cardiac enzyme was negative Pt's chart from 09/16/17 was reviewed and pt had echo and cardiac cath done, by Dr. Kramer. Plan was to schedule a Valve replacement surgery. Case was DW Dr. Hernandez, He notes that he is worried about endocarditis. He accepted pt for admission. Requested Vanco and Rocephin coverage and consult for Dr. Stanford Blood culture pending. - Lab Interpretations Lab Results: 09/26/17 18:50 09/26/17 18:50 Lab Results 09/26/17 18:50: Sodium 134, Potassium 3.6, Chloride 100, Carbon Dioxide 21, Anion Gap 17, BUN 32 H, Creatinine 1.1, Est GFR ( Amer) > 60, Est GFR ( Non-Af Amer) > 60, Random Glucose 146 H, Calcium 8.9, Magnesium 2.1, Total Bilirubin 0.6, AST 51, ALT 21, Alkaline Phosphatase 61, Lactate Dehydrogenase 524, Total Creatine Kinase 41, Troponin I 0.02 D, NT-Pro-B Natriuret Pep 53359 H, Total Protein 7.2, Albumin 4.0, Globulin 3.3, Albumin/Globulin Ratio 1.2 09/26/17 18:50: PT 14.2 H, INR 1.24 H, APTT 30.5 09/26/17 18:50: WBC 9.2, RBC 4.18, Hgb 11.8 L, Hct 34.2 L, MCV 81.8, MCH 28.2, MCHC 34.5, RDW 15.1 H, Plt Count 529 H, MPV 10.5, Gran % 75.1 H, Lymph % (Auto) 15.4 L, [place] % (Auto) 7.7 H, Eos % (Auto) 1.7, Baso % (Auto) 0.1, Gran # 6.90 H , Lymph # (Auto) 1.4, [place] # (Auto) 0.7 H, Eos # (Auto) 0.2, Baso # (Auto) 0.01 - RAD Interpretation Radiology Orders: 09/26/17 18:49 CHEST PORTABLE [RAD] Stat - Medication Orders Current Medication Orders: Aspirin (Aspirin) 325 mg PO DAILY ZITA Atorvastatin Calcium (Lipitor) 10 mg PO DAILY ZITA Hydrochlorothiazide (Microzide) 12.5 mg PO DAILY ZITA Ceftriaxone Sodium (Rocephin 1 Gram Ivpb) 1 gm in 100 mls @ 100 mls/hr IVPB DAILY ZITA PRN Reason: Protocol Losartan Potassium (Cozaar) 100 mg PO DAILY ZITA Discontinued Medications Ceftriaxone Sodium (Rocephin 1 Gram Ivpb) 1 gm in 100 mls @ 200 mls/hr IVPB STAT STA PRN Reason: Protocol Stop: 09/26/17 19:58 Last Admin: 09/26/17 19:50 Dose: 200 mls/hr eMAR Start Stop Document 09/26/17 19:50 RG (Rec: 09/26/17 19:54 RG [id number]) Intravenous Solution Start Date 09/26/17 Start Time 19:52 Sodium Chloride (Sodium Chloride 0.9%) 1,000 mls @ 999 mls/hr IV .Q1H1M STA Stop: 09/26/17 20:28 Last Admin: 09/26/17 19:40 Dose: 999 mls/hr eMAR Start Stop Document 09/26/17 19:40 RG (Rec: 09/26/17 19:54 RG [id number]) Intravenous Solution Start Date 09/26/17 Start Time 19:40 End Date 09/26/17 Vancomycin HCl (Vancomycin 1gm) 1 gm in 250 mls @ 167 mls/hr IVPB STAT STA PRN Reason: Protocol Stop: 09/26/17 20:57 Last Admin: 09/26/17 20:48 Dose: 167 mls/hr eMAR Start Stop Document 09/26/17 20:48 RG (Rec: 09/26/17 20:48 RG [id number]) Intravenous Solution Start Date 09/26/17 Start Time 20:48 Disposition/Present on Arrival - Present on Arrival Any Indicators Present on Arrival: No History of DVT/PE: No History of Uncontrolled Diabetes: No Urinary Catheter: No History of Decub. Ulcer: No History Surgical Site Infection Following: None - Disposition Have Diagnosis and Disposition been Completed?: Yes Diagnosis: Pneumonia, Near syncope Disposition: HOSPITALIZED Disposition Time: 18:55 Patient Plan: Admission Patient Problems: Current Active Problems Problem Status Onset Near syncope Acute Pneumonia Acute Condition: FAIR
[2017-09-26] MEDS ORDERED: Sodium Chloride 0.9% 1,000 ML IV STA (19:28)
[2017-09-26] MEDS ORDERED: Vancomycin 1gm in NS 250ml 1 GM/250 ML BAG IVPB STA (19:28)
[2017-09-26] MEDS ORDERED: cefTRIAXone 1 gm 1 GM/100 ML BAG IVPB STA (19:29)
[2017-09-26 19:45] LABS: INR 1.24 (0.93-1.08); PARTIAL THROMBOPLASTIN TIME 30.5 Seconds (25.1-36.5); PROTHROMBIN TIME 14.2 SECONDS (9.4-12.5)
[2017-09-26 20:00] LABS: BLOOD UREA NITROGEN 32 mg/dL (7-21); CALCIUM 8.9 mg/dL (8.4-10.5); GFR AFRICAN-AMERICAN > 60; GFR NON-AFRICAN AMERICAN > 60
[2017-09-26 20:01] LABS: ALB/GLOB RATIO 1.2 (1.1-1.8); ALT/SGPT 21 U/L (7-56); AST/SGOT 51 U/L (17-59)
[2017-09-26 20:09] LABS: B-TYPE NATRIURETIC PEPTIDE 12900 pg/mL (0-450); TROPONIN I 0.02 ng/mL
[2017-09-26 20:10] LABS: VENOUS BLOOD GAS BASE EXCESS -0.3 mmol/L (0.0-2.0); VENOUS BLOOD GAS PO2 164 mm/Hg (30-55); VENOUS BLOOD PH 7.46 (7.32-7.43)
[2017-09-26 21:41] LABS: URINE BILIRUBIN NEGATIVE (NEGATIVE); URINE BLOOD NEGATIVE (NEGATIVE); URINE GLUCOSE (UA) NEGATIVE (NEGATIVE); URINE LEUKOCYTE ESTERASE NEGATIVE Leu/uL (NEGATIVE); URINE PROTEIN NEGATIVE mg/dL (<30 mg/dL); URINE UROBILINOGEN 0.2 E.U./dL (<1 E.U./dL)
[2017-09-26 21:43] LABS: URINE APPEARANCE CLEAR (CLEAR); URINE COLOR LIGHT YELLOW (YELLOW)
[2017-09-27 01:46] VITALS: BMI 25.2
--- NOTE | 2017-09-27 07:03 | RAD ---
HISTORY: admission COMPARISON: 09/15/2017 FINDINGS: LUNGS: No active pulmonary disease. PLEURA: No significant pleural effusion identified, no pneumothorax apparent. CARDIOVASCULAR: S No radiographic findings to suggest acute or significant cardiovascular disease. OSSEOUS STRUCTURES: No significant abnormalities. VISUALIZED UPPER ABDOMEN: Normal. OTHER FINDINGS: None. IMPRESSION: No active disease. No significant interval change compared to the prior examination(s).
[2017-09-27 08:29] LABS: BARBITURATES, UR NEGATIVE (NEGATIVE); BENZODIAZEPINES, UR NEGATIVE (NEGATIVE); PHENCYCLIDINE, UR NEGATIVE (NEGATIVE)
[2017-09-27 08:31] LABS: OPIATES, UR NEGATIVE (NEGATIVE)
[2017-09-27] MEDS ORDERED: cefTRIAXone 1 gm 1 GM/100 ML BAG IVPB SCH (10:00)
[2017-09-27] MEDS: Cefepime 1gm in NS 100ml 1 GM/100 ML BAG IVPB SCH ×2 (15:06→21:40)
--- NOTE | 2017-09-27 18:57 | CARD ---
APPROVED REPORT EKG Measurement Heart [id number] <Conclusion> Sinus rhythm with 1st degree AV block Inferior infarct, age undetermined Abnormal ECG
--- NOTE | 2017-09-27 18:57 | CARD ---
APPROVED REPORT EKG Measurement Heart [id number] <Conclusion> Sinus rhythm with 1st degree AV block Inferior infarct, age undetermined Abnormal ECG
--- NOTE | 2017-09-27 19:20 | CON ---
DATE: 09/27/2017 LOCATION: The patient is seen in room 274 bed 1. CHIEF COMPLAINT: Weakness and fever at home times a few days. HISTORY OF PRESENT ILLNESS: This is a 77-year-old male with history of prostate cancer with radiation and colitis, also history of dilated thoracic aorta and the patient is found to have critical aortic stenosis and critical mitral regurgitation, had high cholesterol, [id number] myocardial infarction, coronary artery disease, hypertension, essential thrombocytosis, was recently hospitalized from 09/15/2017 until 09/18/2017 with diagnosis of pneumonia; at that time, the blood cultures were negative, now is admitted to the Emergency Room. The patient states he was having fevers at home and had seen Dr. Hernandez. Dr. Hernandez gave him doxycycline. He took the doxycycline cyclin for 1-1/2 days and was admitted to the Emergency Room with weakness and low-grade fevers. He states his fever is improved. He is scheduled to see Dr. Maynard in [place] for bivalvular replacement next week. REVIEW OF SYSTEMS: Twelve point review of systems is performed and he is having some cough. No chest pain. No abdominal pain, diarrhea, constipation or bright red blood per rectum. No melena. No nausea or vomiting. No headaches or blurred vision and does have low-grade fevers. Took his temperature at home, was 100.4. He states that fevers have responded to the doxycycline. PAST MEDICAL HISTORY Significant for prostate cancer, colitis, dilated thoracic aorta, critical aortic stenosis, critical mitral regurgitation, high cholesterol, coronary artery disease, hypertension, [id number] myocardial infarction, essential thrombocytosis, recent hospitalization for three days, a month ago for diagnosis of pneumonia. PAST SURGICAL HISTORY: Significant for cardiac catheterization. He was also . He had surgery in his shoulder when he was 9 years old. ALLERGIES: THE PATIENT IS ALLERGIC TO NICKEL AND FORMALDEHYDE. MEDICATIONS AT HOME: Include valsartan, simvastatin and aspirin. PHYSICAL EXAMINATION: VITAL SIGNS: The patient is in bed with a temperature of 97.3, pulse rate of 76 and blood pressure is 105/68, respiratory rate of 20, 96% on room air. HEENT: Examination is unremarkable. NECK: Supple. LUNGS: Have decreased breath sounds. HEART: Normal S1, S2. ABDOMEN: Soft, nontender. LABORATORY DATA: Reveals a white count of 9.2, hemoglobin of 11, platelets of 529 with 75% granulocytosis. Coagulation is noted and chemistries reveal a BUN of 32, creatinine of 1.1. The BNP is 12,900. Urinalysis is unremarkable. The patient also had a chest x-ray with no active lung disease. Blood cultures have been ordered. The patient is currently started on ceftriaxone by Dr. Hernandez. ASSESSMENT AND PLAN This is a 77-year-old male with prostate cancer with radiation and history of colitis and dilated thoracic aorta with critical aortic stenosis, critical mitral regurgitation, coronary artery disease, hypertension, essential thrombocytosis, recent hospitalization for pneumonia and now presenting with fever and cough with a negative chest x-ray, rule out bronchitis versus HCAP. Currently, we will continue the patient with the doxycycline and discontinue the ceftriaxone and use Maxipime. Pending blood cultures and sputum cultures. Since the chest x-ray is reported to be negative, recommend a CT scan of the chest is as per Dr. Hernandez's decision and we will follow closely with you. We will also order a procalcitonin. Milan Stanford MD
--- NOTE | 2017-09-27 20:15 | HP ---
HISTORY OF PRESENT ILLNESS: A 77-year-old white male with a history of polycythemia Vera, on liquid hydroxyurea; history of aortic stenosis, critical and mitral regurgitation, critical, recently diagnosed at [facility], discharged home, pending evaluation in [facility] for his valve replacements, developed some shortness of breath, low grade fever, chills, and dyspnea on exertion, came to the hospital, found to have elevated BNP of 12,000, normal white count, low grade fever. The patient was treated with IV antibiotics to rule out endocarditis or other occult infections, was treated with diuretics and after the reduction, the patient is improved the following morning. PHYSICAL EXAMINATION: GENERAL: Shows a well-developed, well-nourished white male, in no apparent distress. HEENT: Essentially within normal limits. HEART: Regular sinus rhythm but there is a systolic ejection murmur at the left sternal border and a diastolic murmur at the right mid axillary line. CHEST: Clear to auscultation and percussion. ABDOMEN: Benign. EXTREMITIES: Without cyanosis, clubbing, or edema. IMPRESSION: This is a 77-year-old white male presenting with fever, shortness of breath, elevated BNP, bivalvular critical disease, and history of polycythemia. Sae Hernandez MD
--- NOTE | 2017-09-28 01:37 | CON ---
CARDIOLOGY CONSULTATION REASON FOR CONSULTATION: Dizziness. HISTORY OF PRESENT ILLNESS: The patient is a 77-year-old white male who has history of hypertension, hyperlipidemia, ascending aortic aneurysm, aortic stenosis, mitral insufficiency, prostatic carcinoma status post brachytherapy, and history of recent pneumonia for which the patient required admission 2 weeks ago. The patient underwent cardiac catheterization on 09/17, which revealed critical aortic valve stenosis with an aortic valve area calculated at 0.8 cm2, 1+ aortic insufficiency, and 3+ mitral insufficiency with normal left ventricular systolic function, no critical coronary artery disease. An echocardiographic study was performed a day earlier, which revealed severe valvular aortic stenosis with moderate aortic insufficiency and severe mitral insufficiency. The patient was referred to cardiothoracic surgeon at [facility] to be evaluated for mitral and aortic valve replacement, however, the patient presented yesterday because of dizziness and weakness, which he attributed to hot humid weather yesterday. Patient denies any syncope or fall and does not recall experiencing palpitations. SOCIAL HISTORY: Patient is a nonsmoker. He is , lives with his . MEDICATIONS: Aspirin 325 mg once a day, Cozaar 100 mg once a day, doxycycline 100 mg twice a day, Lipitor 10 mg once a day, cefepime 1 g daily, hydrochlorothiazide 12.5 mg once a day. REVIEW OF SYSTEMS: No retrosternal chest pain. The patient did have low-grade fever. No productive cough. PHYSICAL EXAMINATION: GENERAL: The patient is an elderly male who does not appear to be in acute distress. VITAL SIGNS: Blood pressure 100/61, heart rate 79, temperature 97.8, respirations 18. HEENT: Normocephalic. NECK: No JVD. CHEST: Clear. HEART: S1 and S2 regular, grade 4/6 ejection systolic murmur over the left sternal border and grade 3/6 holosystolic apical murmur. LABORATORY DATA: SMA-7: Sodium 134, potassium of 3.6, chloride 100, CO2 of 21, glucose 146, BUN 32, creatinine 1.1, proBNP is 12,900. Yesterday's hemoglobin and hematocrit 11.8 and 34.2, white count 9.2, platelet count of 529,000. Chest x-ray was unremarkable. EKG revealed sinus tachycardia, first-degree AV block, possible anterior infarct. ASSESSMENT: 1. Lightheadedness and weakness on admission. 2. Critical aortic stenosis. 3. Severe mitral insufficiency. 4. Hypertension. RECOMMENDATIONS: Continue current aspirin 325 mg once a day, Cozaar at 100 mg once a day, doxycycline 100 mg p.o. twice a day, Lipitor 10 mg once a day, IV cefepime at 1 g every 8 hours, and hydrochlorothiazide 12.5 mg daily. The patient will see his cardiothoracic certified ophthalmic surgical assistant in a few days at [facility] in anticipation of mitral and aortic valve replacement. Cliff Luna MD
[2017-09-28] MEDS: Cefepime 1gm in NS 100ml 1 GM/100 ML BAG IVPB SCH (06:30)
[2017-09-28 07:52] LABS: HEMOGLOBIN 10.8 g/dL (14.0-18.0); MEAN CELL VOLUME 82.6 fl (80.0-105.0); MEAN CORPUSCULAR HEMOGLOBIN 28.1 pg (25.0-35.0); MEAN PLATELET VOLUME 10.3 fl (7.0-11.0); RBC 3.85 10^6/uL (3.5-6.1); RED CELL DISTRIBUTION WIDTH 14.8 % (11.5-14.5)
[2017-09-28 08:09] LABS: ALB/GLOB RATIO 1.2 (1.1-1.8); ALBUMIN 3.7 g/dL (3.0-4.8); ALT/SGPT 32 U/L (7-56); AST/SGOT 31 U/L (17-59); BLOOD UREA NITROGEN 14 mg/dL (7-21); CALCIUM 8.9 mg/dL (8.4-10.5); GFR AFRICAN-AMERICAN > 60; GFR NON-AFRICAN AMERICAN > 60
[2017-09-28 12:07] VITALS: BP 108/67; PULSE 72; RESP 16; TEMP 98; O2SAT 100
--- NOTE | 2017-09-28 14:58 | PN ---
DATE: 09/28/2017 FOLLOWUP SUBJECTIVE: The patient denies any dizziness or chest pain. PHYSICAL EXAMINATION: VITAL SIGNS: Blood pressure 107/73, heart rate 83, temperature 98, respirations 18. HEENT: Normocephalic. CHEST: Clear. HEART: S1 and S2 regular. Grade III/ ejection systolic murmur of left sternal border as well as grade IV/ apical holosystolic murmur. ABDOMEN: Soft. EXTREMITIES: No edema. LABORATORY DATA: Today's hemoglobin and hematocrit 10.8 and 31.8, white count 6, platelet count 475,000. Today's SMA-7 is within normal limits except for creatinine of 7. ASSESSMENT: 1. Dizziness on admission. 2. Severe aortic stenosis and severe mitral insufficiency. 3. Hypertension. 4. Mild anemia. 5. Thrombocytosis. RECOMMENDATIONS: Continue current aspirin 325 mg once a day, Cozaar at 100 mg once a day, Lipitor 10 mg once a day, hydrochlorothiazide 12.5 mg once a day. The patient can be discharged from the cardiac point of view to see his cardiothoracic surgeon at [facility] this coming Saturday. The patient was advised not to drive his car from now until his cardiac issues are stabilized. Cliff Luna MD
--- NOTE | 2017-09-28 17:00 | PN ---
DATE: 09/28/2017 SUBJECTIVE: The patient is in bed, in no acute distress. He states he is feeling better. He has had no fevers here and his cough has improved. PHYSICAL EXAMINATION: VITAL SIGNS: Temperature is 98, blood pressure is 107/70, respiratory rate of 18, heart rate of 83. HEENT: Unremarkable. NECK: Supple. LUNGS: Have decreased breath sounds. HEART: Normal S1 and S2. ABDOMEN: Soft. LABORATORY DATA: Reveals a white count of 6000, hemoglobin of 10, platelets of 475. Chemistries reveals a BUN of 14, creatinine of 0.7. Procalcitonin is less than 0.05. Urinalysis is noted. Blood cultures are no growth. ASSESSMENT AND PLAN: This is a 77-year-old male with prostate cancer with radiation, history of colitis and dilated thoracic aorta and critical aortic stenosis and critical mitral regurgitation, coronary artery disease, hypertension, essential thrombocytosis. Dr. Hernandez's history and physical examination states the patient has polycythemia Vera with a recent hospitalization for pneumonia, now presenting with fever, negative chest x-ray, negative procalcitonin, negative blood cultures. We will discontinue the cefepime and complete 5 to 7 days of p.o. doxycycline. The patient has been on it outpatient already for 2 days patient. Milan Stanford MD
--- NOTE | 2017-09-30 08:04 | DS ---
HISTORY OF PRESENT ILLNESS: A 77-year-old white male with a history of aortic stenosis, mitral regurgitation, history of polycythemia, on Pegasys. Patient was admitted with shortness of breath, elevated BNP, low-grade fever. Patient is being evaluated for double valve replacement. Vital signs are stable. Patient was admitted to the hospital, treated with IV and then p.o. antibiotics in consultation with Dr. Kramer and Dr. Stanford. Patient's blood cultures were negative. Hemoglobin was 10.8, white count is 6, platelet count is . He does have a history of polycythemia vera. Otherwise, cultures have been negative. Chest x-ray was clear. Patient will be discharged home on doxycycline, to be followed up as an outpatient. FINAL DISCHARGE DIAGNOSES: Acute congestive heart failure, valvular heart disease, critical aortic stenosis, mitral regurgitation, polycythemia vera and patient will be discharged home in improved condition, to be followed as an outpatient. Sae Hernandez MD
--- NOTE | 2017-09-30 12:28 | PQF CHF ---
09/30/17 Dr. Hernandez, Your discharge summary states "acute CHF." Please specify whether this is systolic, diastolic, or both, as indicated below. Thank you. Clarification of your documentation is requested to better reflect the severity of illness and intensity of treatment of your patient. Indicators present [] Diagnosis of CHF and/or history of CHF [] BNP > 200 [] Imaging Finding of Pulmonary Edema /Pleural Effusions [] Fluid/Volume Overload [] Pitting edema [] Ejection Fraction < 40% (Indicative of Systolic Heart Failure) [] Ejection Fraction > 40% (Indicative of Diastolic Heart Failure) [] Dyspnea / Orthopenea / Paroxysmal Nocturnal Dyspnea [] Other: Location in the medical record that reflects the above clinical findings: [] Treatment Provided: [] PHYSICIAN'S RESPONSE Based on your medical judgment of the clinical indicators outlined above, are you treating this patient for a known or suspected: [] Acute CHF [] Systolic [] Diastolic [] Combined [] Chronic CHF [] Systolic [] Diastolic [] Combined [] Acute on Chronic CHF []Systolic [] Diastolic [] Combined [] CHF due hypertension [] Acute systolic []Chronic systolic [] Acute/ chronic systolic [] Other, please indicate: [] [] If Unable to Determine, please check the box, sign and date. Present On Admission (POA) Indicator: [] Present at the time of admission [] Not present at the time of admission [] Clinically Undetermined In responding to this query, please exercise your independent professional judgment. The fact that a question is asked does not imply that any particular answer is desired or expected. Thank you for your clarification on this documentation. If you have any questions please call:[ ] * Thank you, [ ] patient registration clerk CHAU
--- NOTE | 2017-10-01 17:33 | PQF CHF ---
09/30/17 Dr. Hernandez, Your discharge summary states "acute CHF." Please specify whether this is systolic, diastolic, or both, as indicated below. Previous query form signed only. Thank you. Clarification of your documentation is requested to better reflect the severity of illness and intensity of treatment of your patient. Indicators present [] Diagnosis of CHF and/or history of CHF [] BNP > 200 [] Imaging Finding of Pulmonary Edema /Pleural Effusions [] Fluid/Volume Overload [] Pitting edema [] Ejection Fraction < 40% (Indicative of Systolic Heart Failure) [] Ejection Fraction > 40% (Indicative of Diastolic Heart Failure) [] Dyspnea / Orthopenea / Paroxysmal Nocturnal Dyspnea [] Other: Location in the medical record that reflects the above clinical findings: [] Treatment Provided: [] PHYSICIAN'S RESPONSE Based on your medical judgment of the clinical indicators outlined above, are you treating this patient for a known or suspected: [] Acute CHF [] Systolic [] Diastolic [] Combined [] Chronic CHF [] Systolic [] Diastolic [] Combined [x] Acute on Chronic CHF []Systolic [] Diastolic [x] Combined [] CHF due hypertension [] Acute systolic []Chronic systolic [] Acute/ chronic systolic [] Other, please indicate: [] [] If Unable to Determine, please check the box, sign and date. Present On Admission (POA) Indicator: [x] Present at the time of admission [] Not present at the time of admission [] Clinically Undetermined In responding to this query, please exercise your independent professional judgment. The fact that a question is asked does not imply that any particular answer is desired or expected. Thank you for your clarification on this documentation. If you have any questions please call:[ ] * Thank you, [ x] suction operator CHAU
== END 2017-09-28 13:07 | disposition home or self-care (01) | DRG 293 ==
LOC: ED 18:27 → ERH 19:30 → 2RSO 21:57
PROVIDERS: ADMIT Internal Medicine; ATTEND Internal Medicine
DX: I11.0 Hypertensive heart disease with heart failure (principal); I50.43 Acute on chronic combined systolic (congestive) and diastolic (congestive) heart failure; R42 Dizziness and giddiness; I50.9 Heart failure, unspecified; I08.0 Rheumatic disorders of both mitral and aortic valves; I25.10 Atherosclerotic heart disease of native coronary artery without angina pectoris; Z85.820 Personal history of malignant melanoma of skin; Z85.46 Personal history of malignant neoplasm of prostate; D45 Polycythemia vera; D64.9 Anemia, unspecified; E78.5 Hyperlipidemia, unspecified; Z87.01 Personal history of pneumonia (recurrent); D47.3 Essential (hemorrhagic) thrombocythemia; E78.00 Pure hypercholesterolemia, unspecified; Z92.3 Personal history of irradiation; I25.2 Old myocardial infarction; Z88.8 Allergy status to other drugs, medicaments and biological substances; Z91.048 Other nonmedicinal substance allergy status